=== PATIENT | female | born 1955 | race Caucasian/White ===

== ENCOUNTER 2018-01-19 10:46 | Observation (INO) | payer BC ==
[2018-01-18 15:16] LABS: BASOPHILS # (AUTO) 0.1 (0.0-0.1); BASOPHILS % 0.7 % (0.0-1.0); EOSINOPHILS # (AUTO) 0.5 (0.0-0.4); EOSINOPHILS % 5.9 % (0.0-6.0); HEMATOCRIT 42.4 % (34.2-44.1); HEMOGLOBIN 14.1 g/dL (12.0-16.0); LYMPHOCYTES # (AUTO) 2.9 (1.0-3.2); LYMPHOCYTES % 34.1 % (18.0-39.1); MEAN CORPUSCULAR HEMOGLOBIN 28.4 pg (28-32); MEAN CORPUSCULAR HGB CONC 33.3 g/dL (31-35); MEAN CORPUSCULAR VOLUME 85.5 fL (81-99); MONOCYTES # (AUTO) 0.8 (0.2-0.8); MONOCYTES % 9.7 % (4.4-11.3); NEUTROPHILS # (AUTO) 4.1 (2.1-6.9); NEUTROPHILS % 49.4 % (38.7-80.0); PLATELET COUNT 244 x10e3/uL (140-360); RED BLOOD COUNT 4.96 x10e6/uL (3.6-5.1); RED CELL DISTRIBUTION WIDTH 14.8 % (11.7-14.4)
[2018-01-18 15:36] LABS: ALANINE AMINOTRANSFERASE 20 IU/L (0-55); ALBUMIN 3.9 g/dL (3.5-5.0); ALKALINE PHOSPHATASE 83 IU/L (40-150); ANION GAP 13.4 mmol/L (8-16); BLOOD UREA NITROGEN 20 mg/dL (7-26); BUN/CREATININE RATIO 24 (6-25); CALCIUM 10.5 mg/dL (8.4-10.2); CARBON DIOXIDE 25 mmol/L (22-29); CHLORIDE 105 mmol/L (98-107); CHOL/HDL RATIO 2.6 (3.0-3.6); CHOLESTEROL 151 MD/DL (0-199); CREATININE, SERUM 0.85 mg/dL (0.57-1.11); EST GLOMERULAR FILTRATION RATE > 60 ML/MIN (60-); GLUCOSE 92 mg/dL (74-118); HDL CHOLESTEROL 59 MG/DL (40-60); LDL CHOLESTEROL 77 MG/DL (60-130); POTASSIUM 4.4 mmol/L (3.5-5.1); SODIUM 139 mmol/L (136-145); TRIGLYCERIDES 74 MG/DL (0-149)
[~2018-01-19] VITALS: Ht 157.5 cm; Wt 120.2 kg
[~2018-01-19 10:46] MED LIST: LEVOTHYROXINE100 MCG PO; LISINOPRIL10 MG PO; PREDNISONE10 MG PO; SIMVASTATIN20 MG PO
[2018-01-19] MEDS ORDERED: ALPRAZOLAM 0.5 MG TAB ONE (11:17)
[2018-01-19] MEDS ORDERED: DIPHENHYDRAMINE HCL 25 MG CAP ONE (11:17)
[2018-01-19] MEDS ORDERED: IOPAMIDOL 300MG/ML 100 ML INFUS..BTL IV ONE ×2 (12:13→13:11)
[2018-01-19] MEDS ORDERED: LIDOCAINE HCL 2% LOCAL 20 ML VIAL ONE ×2 (12:13→12:57)
[2018-01-19] MEDS ORDERED: HEPARIN SOD/SOD CHLORIDE 2,000 ML ONE (12:13)
[2018-01-19] MEDS ORDERED: MIDAZOLAM HCL 2 MG/2 ML VIAL ONE ×2 (12:19→13:00)
[2018-01-19] MEDS ORDERED: FENTANYL CITRATE/PF 100MCG/2 ML INJ ONE (12:19)
[2018-01-19] MEDS ORDERED: SODIUM CHLORIDE 0.9% 1000ML 1,000 ML ONE ×2 (12:19→13:07)
[2018-01-19] MEDS ORDERED: HEPARIN SOD (PORCINE) 1000 UNIT/ML 30ML ONE (13:07)
[2018-01-19] MEDS ORDERED: VERAPAMIL HCL 2.5 MG/ML 2 ML VIAL ONE (13:07)
[2018-01-19] MEDS ORDERED: ATROPINE SULFATE 0.1 MG/ML 10ML SYR ONE ×2 (13:28→15:16)
[2018-01-19] MEDS ORDERED: PROTAMINE SULFATE 10 MG/ML 5 ML VIAL ONE (13:46)
[2018-01-19] MEDS ORDERED: SODIUM CHLORIDE 0.9% 100 ML 100 ML ONE (13:47)
[2018-01-19] MEDS ORDERED: HYDRALAZINE HCL 20 MG/ML VIAL IV PRN (14:15)
[2018-01-19] MEDS ORDERED: MORPHINE SULFATE 2 MG/ML SYR ONE (14:15)
[2018-01-19] MEDS ORDERED: MORPHINE SULFATE 2 MG/ML SYR IV PRN (14:15)
[2018-01-19] MEDS ORDERED: MORPHINE SULFATE INJ 4 MG/ML INJ IV PRN (14:30)
[2018-01-19 17:10] VITALS: BP 129/58
[2018-01-19] MEDS ORDERED: VITAMIN D1000 UNI1 PO (17:20)
[2018-01-19] MEDS ORDERED: METOPROLOL TART25 MG PO (17:20)
[2018-01-19] MEDS ORDERED: LEVOTHYROXINE112 MCG PO (17:20)
[2018-01-19] MEDS ORDERED: LASIX20 MG PO (17:20)
[2018-01-19] MEDS ORDERED: SYMBICORT 80-10.2 GM INH (17:20)
[2018-01-19] MEDS ORDERED: BUPROPION HCL150 MG PO (17:20)
[2018-01-19] MEDS ORDERED: EFFIENT10 MG PO (17:20)
[2018-01-19 17:48] VITALS: BP 129/58
[2018-01-19 17:51] VITALS: BP 129/58
[2018-01-19] MEDS ORDERED: SODIUM CHLORIDE 0.9% 1000ML 1,000 ML IV SCH (18:15)
[2018-01-19 20:00] VITALS: BP 106/52
--- NOTE | 2018-01-19 23:53 | Operative Report ---
DATE OF PROCEDURE: January 19, 2018 CARDIAC HIMS CODER PROCEDURE NOTE INDICATIONS: Claudication and peripheral arterial disease. PROCEDURES PERFORMED: 1. Abdominal aorta catheter placement with abdominal aortogram. 2. Bilateral lower extremity angiograms. 3. Atherectomy and balloon angioplasty, left femoral artery. Access obtained in the right femoral artery. A 6-Lao sheath was placed. Abdominal aortogram demonstrated no disease in the abdominal aorta and iliacs bilaterally. Selective catheter placement of the right femoral artery and left superficial femoral artery was performed with complete occlusion of left proximal femoral artery. A decision was made to intervene on this vessel. The patient received 10,000 units of intra-arterial heparin. Central venous access was obtained. The lesions were crossed using a Roadrunner wire. Orbital atherectomy, large amounts of visible thrombus was performed. Manual aspiration secondary thrombectomy balloon angioplasty with drug-coated balloon with excellent end result, less than 10% residual stenosis, 3-vessel runoff to the left foot. No complications. Sheaths were secured in place and removed under manual pressure. Patient observed in the hospital overnight. Job#: [id number]
[2018-01-20] VITALS: BP 107/55
[2018-01-20 00:12] VITALS: BP 106/52
[2018-01-20 04:00] VITALS: BP 109/64
[2018-01-20 05:24] LABS: BASOPHILS # (AUTO) 0.1 (0.0-0.1); BASOPHILS % 0.8 % (0.0-1.0); EOSINOPHILS # (AUTO) 0.3 (0.0-0.4); EOSINOPHILS % 3.5 % (0.0-6.0); HEMATOCRIT 39.7 % (34.2-44.1); LYMPHOCYTES # (AUTO) 2.5 (1.0-3.2); LYMPHOCYTES % 29.4 % (18.0-39.1); MEAN CORPUSCULAR HEMOGLOBIN 28.7 pg (28-32); MEAN CORPUSCULAR HGB CONC 32.7 g/dL (31-35); MEAN CORPUSCULAR VOLUME 87.6 fL (81-99); MONOCYTES % 12.2 % (4.4-11.3); NEUTROPHILS # (AUTO) 4.6 (2.1-6.9); NEUTROPHILS % 53.9 % (38.7-80.0); PLATELET COUNT 210 x10e3/uL (140-360); RED BLOOD COUNT 4.53 x10e6/uL (3.6-5.1); RED CELL DISTRIBUTION WIDTH 14.9 % (11.7-14.4)
[2018-01-20 05:45] LABS: ANION GAP 11.7 mmol/L (8-16); BLOOD UREA NITROGEN 17 mg/dL (7-26); BUN/CREATININE RATIO 19 (6-25); CALCIUM 9.7 mg/dL (8.4-10.2); CARBON DIOXIDE 24 mmol/L (22-29); CHLORIDE 109 mmol/L (98-107); CREATININE, SERUM 0.91 mg/dL (0.57-1.11); EST GLOMERULAR FILTRATION RATE > 60 ML/MIN (60-); GLUCOSE 113 mg/dL (74-118); POTASSIUM 4.7 mmol/L (3.5-5.1); SODIUM 140 mmol/L (136-145)
[2018-01-20 07:33] VITALS: BP 114/51
[2018-01-20 08:03] VITALS: BP 114/51
--- NOTE | 2018-01-20 08:14 | Progress Note ---
DATE: January 20, 2018 CARDIOLOGY PROGRESS NOTE SUBJECTIVE: No major events overnight. Continues to complain about left shoulder pain that is unchanged. REPORT NOT COMPLETED, LENGTH 0:58 Job#: [id number] [facility]
[2018-01-20] MEDS ORDERED: LISINOPRIL 10 MG TAB PO SCH (09:00)
[2018-01-20 11:21] VITALS: BP 110/63
== END 2018-01-20 12:14 | disposition home or self-care (01) ==
LOC: CATH LAB 10:46 → IMCU 14:13
PROVIDERS: ADMIT Internal Medicine Interventional Cardiology; ATTEND Internal Medicine Interventional Cardiology
DX: I73.9 Peripheral vascular disease, unspecified (principal)
CPT/HCPCS: 36415 ×2; 37225; 75625; 75716; 80048; 80053; 80061; 85025 ×2; C1724; C1725; C1769; C1887; C2623; G0378 ×2; J1644; J2001; J2250; J2270; J2720; J7030 ×2; Q9967

== ENCOUNTER → 2018-04-20 | Day surgery (SDC) | payer BC ==
[2018-04-19 11:50] LABS: BASOPHILS # (AUTO) 0.1 (0.0-0.1); BASOPHILS % 0.8 % (0.0-1.0); EOSINOPHILS # (AUTO) 0.4 (0.0-0.4); EOSINOPHILS % 5.4 % (0.0-6.0); HEMATOCRIT 43.7 % (34.2-44.1); HEMOGLOBIN 14.4 g/dL (12.0-16.0); LYMPHOCYTES # (AUTO) 2.7 (1.0-3.2); MEAN CORPUSCULAR HEMOGLOBIN 29.4 pg (28-32); MEAN CORPUSCULAR VOLUME 89.2 fL (81-99); MONOCYTES # (AUTO) 0.9 (0.2-0.8); NEUTROPHILS # (AUTO) 3.4 (2.1-6.9); NEUTROPHILS % 45.4 % (38.7-80.0); PLATELET COUNT 239 x10e3/uL (140-360); RED CELL DISTRIBUTION WIDTH 14.2 % (11.7-14.4)
[2018-04-19 12:16] LABS: ALANINE AMINOTRANSFERASE 14 IU/L (0-55); ALBUMIN 3.5 g/dL (3.5-5.0); ALBUMIN/GLOBULIN RATIO 0.9 (0.8-2.0); ALKALINE PHOSPHATASE 75 IU/L (40-150); ANION GAP 14.5 mmol/L (8-16); BLOOD UREA NITROGEN 23 mg/dL (7-26); BUN/CREATININE RATIO 27 (6-25); CALCIUM 9.8 mg/dL (8.4-10.2); CARBON DIOXIDE 23 mmol/L (22-29); CHLORIDE 105 mmol/L (98-107); CREATININE, SERUM 0.84 mg/dL (0.57-1.11); EST GLOMERULAR FILTRATION RATE > 60 ML/MIN (60-); GLUCOSE 111 mg/dL (74-118); POTASSIUM 4.5 mmol/L (3.5-5.1); SODIUM 138 mmol/L (136-145)
[~2018-04-20] VITALS: Ht 157.5 cm; Wt 120.2 kg
[~2018-04-20] MED LIST changes: +ALPRAZOLAM 0.5 MG TAB ONE; +BUPROPION HCL150 MG PO; +DIPHENHYDRAMINE HCL 25 MG CAP ONE; +EFFIENT10 MG PO; +FENTANYL CITRATE/PF 100MCG/2 ML INJ ONE; +HEPARIN SOD/SOD CHLORIDE 2,000 ML ONE; +IOPAMIDOL 370 MG/ML 200 ML INFUS..BTL INJ ONE; +LASIX20 MG PO; +LEVOTHYROXINE112 MCG PO; +LIDOCAINE HCL 2% LOCAL 20 ML VIAL ONE; +METOPROLOL TART25 MG PO; +MIDAZOLAM HCL 2 MG/2 ML VIAL ONE; +SODIUM CHLORIDE 0.9% 1000ML 1,000 ML ONE; +SYMBICORT 80-10.2 GM INH; +VERAPAMIL HCL 2.5 MG/ML 2 ML VIAL ONE; +VITAMIN D1000 UNI1 PO
[2018-04-20 13:40] VITALS: BP 155/81
[2018-04-20 13:55] VITALS: BP 147/67
[2018-04-20 14:10] VITALS: BP 149/77
[2018-04-20 14:25] VITALS: BP 146/110
--- NOTE | 2018-04-20 14:33 | Operative Report ---
DATE OF PROCEDURE: April 20, 2018 INDICATIONS: Coronary artery disease, abnormal stress test with apical ischemia. PROCEDURES PERFORMED 1. Left heart catheterization, selective coronary angiography, left ventriculography. 1. Deployment of right wrist transradial band. COMPLICATIONS: None. RECOMMENDATIONS: Medical therapy. Access radial artery ultrasound guidance. A 5-[place] sheath was placed. Diagnostic coronary angiogram revealed widely patent left main. Multiple stents from the proximal to distal left anterior descending artery were widely patent. Circumflex had mild disease. Stent in the proximal and mid right coronary artery was widely patent. Distal right coronary artery 50% stenosis. No intervention was deemed necessary. LV ejection fraction 60%. LV end-diastolic pressure of 10. No gradient across the aortic valve on pullback. Right wrist sheath and guide were removed. TR band applied. Patient discharged home same day. Job#: [id number] EV
[2018-04-20 14:40] VITALS: BP 138/71
[2018-04-20 15:30] VITALS: BP 157/59
== END | disposition home or self-care (01) ==
LOC: CATH LAB 10:32
PROVIDERS: ATTEND Internal Medicine Interventional Cardiology
DX: I25.118 Atherosclerotic heart disease of native coronary artery with other forms of angina pectoris (principal); Z95.5 Presence of coronary angioplasty implant and graft; I73.9 Peripheral vascular disease, unspecified; Z01.812 Encounter for preprocedural laboratory examination; F17.210 Nicotine dependence, cigarettes, uncomplicated; Z79.02 Long term (current) use of antithrombotics/antiplatelets; Z88.5 Allergy status to narcotic agent
CPT/HCPCS: 36415; 80053; 85025; 93458; C1887; J2001; J2250; J7030; Q9967